=== PATIENT | female | born 1950 ===

== ENCOUNTER 2017-10-25 16:00 | Inpatient (IN) | payer OTHER ==
[~2017-10-25] VITALS: Ht 157.5 cm; Wt 57.6 kg
[2017-11-01] MEDS ORDERED: VALSARTAN-HCTZ1 EAC3 PO (14:17)
[2017-11-01] MEDS ORDERED: [UNRECOGNIZED DRUG - OTHER] PO (14:18)
[2017-11-01] MEDS ORDERED: SINGULAIR10 MG PO (14:18)
[2017-11-01] MEDS ORDERED: HYOSCYAMINE0.125 M2 PO (14:19)
== END 2017-11-08 12:58 | disposition home or self-care (01) | DRG 330 ==
LOC: SURG 11-03 06:00 → O/R 11-03 06:00 → SURG 11-03 11:15
PROVIDERS: Colon & Rectal Surgery
PROC: 0WUF47Z Supplement Abdominal Wall with Autologous Tissue Substitute, Percutaneous Endoscopic Approach (ICD-10-PCS; 2017-11-03)
PROC: 0TQB4ZZ Repair Bladder, Percutaneous Endoscopic Approach (ICD-10-PCS; 2017-11-03)
PROC: 0UQG4ZZ Repair Vagina, Percutaneous Endoscopic Approach (ICD-10-PCS; 2017-11-03)
PROC: 0DJD8ZZ Inspection of Lower Intestinal Tract, Via Natural or Artificial Opening Endoscopic (ICD-10-PCS; 2017-11-03)
PROC: 0DTN4ZZ Resection of Sigmoid Colon, Percutaneous Endoscopic Approach (ICD-10-PCS; principal; 2017-11-03 11:15)
DX: K57.20 Diverticulitis of large intestine with perforation and abscess without bleeding (principal); N82.3 Fistula of vagina to large intestine; I10 Essential (primary) hypertension

== ENCOUNTER 2018-12-02 08:09 | Day surgery (SDC) | payer OTHER ==
[~2018-12-02 08:09] MED LIST: HYOSCYAMINE0.125 M2 PO; SINGULAIR10 MG PO; VALSARTAN-HCTZ1 EAC3 PO; [UNRECOGNIZED DRUG - OTHER] PO
== END 2018-12-02 14:55 | disposition home or self-care (01) ==
LOC: AMB-ENDOS 08:09
DX: D12.2 Benign neoplasm of ascending colon (principal); K64.1 Second degree hemorrhoids